=== PATIENT | male | born 1955 | race Caucasian/White ===

== ENCOUNTER 2016-05-30 13:07 | Inpatient (IN) ==
--- NOTE | 2016-05-30 08:18 | Discharge Summary ---
Date of Encounter: 06/02/16 Time of Encounter: 07:47 - Discharge Diagnosis (1) Arthritis of right knee Priority: Primary Status: Acute (2) Hypertension Priority: Secondary Status: Chronic Qualifiers: Hypertension type: unspecified secondary hypertension Qualified Code(s): I15.9 - Secondary hypertension, unspecified; I15 - Secondary hypertension (3) Hyperlipidemia Priority: Secondary Status: Chronic Qualifiers: Hyperlipidemia type: unspecified Qualified Code(s): E78.5 - Hyperlipidemia , unspecified (4) Obstructive sleep apnea Priority: Secondary Status: Chronic (5) Type 2 diabetes mellitus Priority: Secondary Status: Chronic Qualifiers: Diabetes mellitus complication status: without complication Diabetes mellitus director long term care insulin use: unspecified chcf insulin use status Qualified Code(s): E11.9 - Type 2 diabetes mellitus without complications (6) Obesity (BMI 35.0-39.9 without comorbidity) Priority: Secondary Status: Chronic - Discharge Medications Home Medications: Aspirin Enteric Coated [Aspirin EC] 325 mg PO BID #20 tablet.dr 05/30/16 [Rx] GlipiZIDE XL (24 HR) [Glucotrol XL] 10 mg PO 0800 05/30/16 [History] Losartan/Hydrochlorothiazide [Hyzaar 100-25 Tablet] 1 each PO HS 05/30/16 [ History] Metformin HCl [Glucophage] 1,000 mg PO BID 05/30/16 [History] Multivitamin [One Daily Essential] 1 each PO DAILY 05/30/16 [History] OxyCODONE Immed Rel [Roxicodone 5 MG] 5 - 10 mg PO Q6HR PRN #30 tablet 05/30/16 [Rx] Sertraline [Zoloft] 100 mg PO DAILY 05/30/16 [History] Allergies/Adverse Reactions: Allergies Penicillins [PCN] Allergy (Verified 05/30/16 13:50) See Comments Pt not sure of reaction Primary care physician: Joel Joy, - Patient Status Disposition: Transfer Inpatient Rehab Fac Condition: Good Functional capacity at discharge: uses cane/walker Overall status at discharge: patient is progressing back to baseline - Discharge Instructions Follow Up With: Luis Spangler MD [Partnered Physician] - 06/24/16 7:15 am Joel Joy DO [Primary Care Provider] - Joanna Mendoza PAC [Physician Outside Parts Salesman] - 06/12/16 10:30 am - Hospital Course Hospital course: Mr. Hernandez is a 60 year old male The patient had an uneventful postoperative course. They received antibiotics and physical therapy and were discharged in stable condition. There will follow -up in the office in 2 weeks. Aspirin DVT prophylaxis - Time Spent with Patient Total time spent providing and/or coordinating discharge services:
--- NOTE | 2016-05-30 13:17 | History & Physical Report ---
Date of Encounter: 05/30/16 Time of Encounter: 13:17 24 Hour HP Update - Instructions Instructions: If the History and Physical is less than 30 days old and was completed prior to A.M. admission and or procedure and has NOT been updated on calendar day of procedure please complete this update prior to performing procedure. - Update Patient reports changes in Medical Condition: No Changes in examination, assessment, or condition: No Changes in Medication: No Preop tests/diagnostics Reviewed: Yes Surgery Remains Indicated: Yes Consent for Planned Operative Procedure(s) Verified: Yes - Pre-Operative Checklist Preoperative Checklist Indicated: No Prophylactic Antibiotic Ordered: Yes Is VTE Prophylaxis Indicated?: Yes
[2016-05-30] MEDS ORDERED: Clindamycin 900 MG/50 ML 900 MG/50 ML IV.SOLN IVPB ONE (13:28)
[2016-05-30] MEDS ORDERED: Scopolamine Patch 1.5 MG PATCH.TD72 TD ONE (13:33)
[2016-05-30] MEDS ORDERED: *HR* FentaNYL (PF) 100 MCG/2 ML VIAL ONE ×2 (13:35→14:48)
[2016-05-30] MEDS ORDERED: *HR* Midazolam HCl 2 MG/2 ML VIAL ONE (13:35)
[2016-05-30] MEDS ORDERED: Lidocaine -MPF 2% 2 ML VIAL ONE (13:36)
[2016-05-30] MEDS ORDERED: *HR* Succinylcholine 200 MG/10 ML VIAL IVP ONE (13:36)
[2016-05-30] MEDS ORDERED: *HR* Propofol 200 MG/20 ML VIAL IVP ONE ×3 (13:36→14:44)
--- NOTE | 2016-05-30 13:36 | Anesthesia Evaluation PreOp ---
Date of Encounter: 05/30/16 Time of Encounter: 13:35 - Past History Planned Operation: R TKA Cardiac History: HTN, Hyperlipidemia Pulmonary History: Former smoker, BARBARA Dx OFFICE LEAD History: Denies Any Significant HX Other Medical History: Diabetes Type II (oral medications only) Anesthesia History: No Prior Anesthetic Complications Alcohol Use: none Drug use: none Medications and Allergies Aleve 09/05/15 [History] Blood Pressure Medication 09/05/15 [History] Glipizide 09/05/15 [History] Meclizine [Antivert] 25 mg PO TID PRN #30 tablet 09/05/15 [Rx] Metformin 09/05/15 [History] Multivitamin 09/05/15 [History] Zoloft 09/05/15 [History] Diazepam [Valium] 5 mg PO TID #10 tablet 09/07/15 [Rx] Aspirin Enteric Coated [Aspirin EC] 325 mg PO BID #20 tablet. 05/30/16 [Rx] OxyCODONE Immed Rel [Roxicodone 5 MG] 5 - 10 mg PO Q6HR PRN #30 tablet 05/30/16 [Rx] Allergies Penicillins [PCN] Allergy (Verified 09/05/15 16:19) See Comments Pt not sure of reaction - Meds/Allergy Pre-op Review Medications Reviewed: Yes Allergies Reviewed: Yes Beta Blockers on Current Med List: No Anesthesia Results - Labs Laboratory Tests 05/14/16 05/14/16 05/14/16 13:42 13:42 13:42 WBC 8.5 Hgb 13.6 Hct 40.7 Plt Count 249 PT 11.6 INR 1.1 APTT 31.7 Sodium 135 L Potassium 4.1 Chloride 99 Carbon Dioxide 25 BUN 12 Creatinine 0.81 Est GFR ( Amer) > 60 Est GFR (Non-Af Amer) > 60 BUN/Creatinine Ratio 15 Est Mean Plasma Glucose Hemoglobin A1c 05/14/16 13:42 WBC Hgb Hct Plt Count PT INR APTT Sodium Potassium Chloride Carbon Dioxide BUN Creatinine Est GFR ( Amer) Est GFR (Non-Af Amer) BUN/Creatinine Ratio Est Mean Plasma Glucose 166 Hemoglobin A1c 7.4 H - Imaging EKG: report reviewed, image reviewed (SR) Anesthesia Exam Weight: 125 kg NPO (# of Hours): >> 8 hrs - HEENT Pupil (Motor): Pupils equal, EOMI Mallampati: II Teeth: Normal Oral Opening: Greater than 3 - OFFICE LEAD LOC: Oriented OFFICE LEAD Motor: Normal RUE, Normal LUE, Normal RLE, Normal LLE, Normal Face OFFICE LEAD Sensory: Normal: RUE, LUE, RLE, LLE, Face - Cardiac Rhythm: Regular Murmur: None - Pulmonary Breath Sounds: bilateral Clear Respiratory Effort: Symmetrical Anesthesia Assess/Plan ASA Score: 3 Modified Blackwater Scale for Level of Consciousness: Cooperative, oriented, and tranquil Anesthetic Plan: General, Regional Monitoring Plan: Standard Monitors Recovery Plan: PACU
[2016-05-30] MEDS ORDERED: ROPIVACAINE HCL/PF 0.5% 30 ML VIAL ONE (13:59)
[2016-05-30] MEDS ORDERED: Bupivacaine/Clonidine Syringe 1 EACH SYRINGE ONE (14:00)
[2016-05-30] MEDS ORDERED: Ringers Solution, Lactated 1,000 ML IVC SCH ×2 (14:15→16:48)
[2016-05-30] MEDS ORDERED: Ketorolac 30 MG/ML VIAL ONE (14:57)
[2016-05-30] MEDS ORDERED: *HR* HYDROmorphone 2 MG/ML SYRINGE ONE (14:58)
[2016-05-30] MEDS ORDERED: Ondansetron 4 MG/2 ML VIAL ONE (14:59)
[2016-05-30] MEDS ORDERED: EPHEDrine 50 MG/ML VIAL ONE (15:03)
--- NOTE | 2016-05-30 15:51 | Orthopedic Operative Note ---
Date of procedure: 05/30/16 Pre-op diagnosis: Right knee arthritis Post-op diagnosis: same Procedure: Procedure: Right Total knee replacement Estimated blood loss: 300 cc Hardware: Biomet SS K Femur: 75 right, 22 x 120 stem Tibia: 79, 16 x 120 stem Mila insert: 10 Patella: 40 Exam Under anesthesia: Procedural Notes: Grade 4 arthritic changes in all 3 compartments. Operative procedure: The patient was brought to the operating room and placed on the operating room table. After general anesthesia was administered the operative knee was examined. Findings were noted in the exam under anesthesia. The operative extremity was prepped and draped in sterile surgical fashion. The patient received IV antibiotics prior to skin incision. A standard midline incision was made centered over the patella. The incision was made through the skin and subcutaneous tissue. A medial parapatellar tendon approach was performed. Care was taken to preserve tissue along the medial aspect of the patella. And to protect the patella tendon. The deep MCL was released off the medial tibia. The infra patella fat pad was excised. Knee was brought into flexion. Patient noted to have grade 4 arthritic changes all 3 compartments. The entry hole was made for the intramedullary femoral guide. The guide was seated in 6 degrees of valgus. Anterior cut was made followed by the distal cut. The ACL the PCL the medial and the lateral menisci were excised. The tibia was subluxed forward. The entry hole was made for the intramedullary tibial guide. Guide was seated to resect 2 mm off the more abnormal side. The knee was brought into flexion the distal femur was sized to a 75. The femur was reamed up to a 22 x 120. The femoral guide was seated, the anterior cut was made followed by the posterior condylar cut, followed by the chamfer cuts. The finishing guide was seated the box cut was made. The tibia was sized to a 79 The tibia was reamed up to a 16 x 120. Trial reduction revealed full extension no varus valgus instability with the appropriate 10 insert. The patella was everted and cut was made at the level of the insertion of the quadriceps and patella tendon. The patella was sized to a 40 the guide was seated and the lug holes are drilled. Trial reduction revealed excellent patella tracking. All trial components were removed all bony surfaces were irrigated. Components were assembled on the back table. The tibia was cemented first followed by the femur. The 10 Mila was seated and secured. The knee was brought into full extension. The patella was cemented and held in place with the patellar holding clamp. After the cement had hardened, the knee sat for 2 minutes with a Betadine saline solution. The knee was then irrigated out with 2 L of pulse irrigation. The extensor mechanism was closed with #2 FiberWire suture and #2 PDS suture. The subcutaneous tissue was then irrigated and closed deep with #1 PDS suture superficially with 0 PDS suture and skin was closed with skin haritha The patient was then placed in a sterile dressing and a postoperative brace extubated and transferred to recovery room in stable condition. Anesthesia: LAUREN Surgeon: Luis Spangler Health Care Marketing Manager: Stephanie Argueta Condition: stable Disposition: PACU
[2016-05-30 16:19] LABS: Hematocrit 38.8 % (37.5-50.1); Hemoglobin 12.8 g/dL (12.9-16.9)
--- NOTE | 2016-05-30 16:21 | Anesthesia Evaluation Post Op ---
Date of Encounter: 05/30/16 Time of Encounter: 16:20 - Vital Signs Vital Signs: Last Vital Signs Temp 97.0 F L 05/30/16 15:51 Pulse 88 05/30/16 16:11 Resp 18 05/30/16 16:11 BP 123/81 05/30/16 16:11 Pulse Ox 93 05/30/16 16:11 - Lungs Lungs: Clear Ascult./Percussion - Airway Airway: Non-obstructed - Cardiovascular Regular Rate - Mental Status Mental Status: Alert & Oriented, Answers Appropriately - Pain Pain Scale: 3 - Nausea Vomiting Nausea Vomiting: Not Present - Hydration Hydration: Ice chips - Discharge PostOp Status: Transfer Patient to floor
[2016-05-30] MEDS ORDERED: Acetaminophen 325 MG TABLET PO PRN (16:48)
[2016-05-30] MEDS ORDERED: Ondansetron 4 MG/2 ML VIAL IVP PRN (16:48)
[2016-05-30] MEDS ORDERED: *HR* OxyCODONE Immed Rel 5 MG TABLET PO PRN (16:48)
[2016-05-30] MEDS ORDERED: MOM Conc 10 ML UD.LIQ PO PRN (16:48)
[2016-05-30] MEDS ORDERED: Dextrose Gel 15 GM PO PRN ×2 (16:48)
[2016-05-30] MEDS ORDERED: Temazepam 15 MG CAPSULE PO PRN (16:48)
[2016-05-30] MEDS ORDERED: *HR* Dextrose 50 % in Water (Syg) 50 ML SYRINGE IVP PRN (16:48)
[2016-05-30] MEDS ORDERED: Sennosides 8.6 MG TABLET PO PRN (16:48)
[2016-05-30] MEDS ORDERED: Naloxone 0.4 MG/ML INJ IVP PRN (16:48)
[2016-05-30] MEDS ORDERED: D5% in Water 1,000 ML IVC PRN (16:48)
[2016-05-30] MEDS ORDERED: *HR* Enoxaparin 30 MG/0.3 ML SYRINGE SQ SCH (18:00)
[2016-05-30] MEDS: Insulin LISPRO 300 UNITS/3 ML VIAL SQ SCH ×2 (19:05→22:16)
[2016-05-30] MEDS: *HR* Enoxaparin 30 MG/0.3 ML SYRINGE SQ SCH (19:05)
[2016-05-30] MEDS: *HR* Metformin 500 MG TABLET PO SCH (19:05)
[2016-05-30] MEDS: *HR* OxyCODONE Immed Rel 5 MG TABLET PO PRN ×2 (19:48→23:53)
[2016-05-30] MEDS: Losartan/HCTZ 50-12.5 TABLET PO SCH (22:16)
[2016-05-30] MEDS: Clindamycin 900 MG/50 ML 900 MG/50 ML IV.SOLN IVPB SCH (22:16)
[2016-05-31] MEDS: *HR* OxyCODONE Immed Rel 5 MG TABLET PO PRN ×4 (04:09→21:36)
[2016-05-31] MEDS: Clindamycin 900 MG/50 ML 900 MG/50 ML IV.SOLN IVPB SCH (06:12)
[2016-05-31] MEDS: *HR* Enoxaparin 30 MG/0.3 ML SYRINGE SQ SCH ×2 (06:13→19:44)
[2016-05-31 06:43] LABS: Hematocrit 35.3 % (37.5-50.1); Hemoglobin 11.5 g/dL (12.9-16.9)
[2016-05-31 06:56] LABS: BUN/Creatinine Ratio 19 (6-26); Blood Urea Nitrogen 16 mg/dL (8-26); Calcium 8.5 mg/dL (8.6-10.8); Carbon Dioxide 24 mEq/L (19-29); Chloride 96 mEq/L (98-109); Glucose 151 mg/dL (70-99); Osmolality,Calculated 284 (280-300); Sodium 135 mEq/L (136-145); eGFR For African Americans > 60 (> 60); eGFR For Non-African Americans > 60 (> 60)
[2016-05-31] MEDS: Multivit/Ca/Min/Fe/FA 1 TAB TABLET PO SCH (09:08)
[2016-05-31] MEDS: *HR* GlipiZIDE XL (24 HR) 10 MG TABLET PO SCH (09:08)
[2016-05-31] MEDS: *HR* Metformin 500 MG TABLET PO SCH ×2 (09:08→16:43)
[2016-05-31] MEDS: Insulin LISPRO 300 UNITS/3 ML VIAL SQ SCH ×3 (09:09→16:44)
[2016-05-31] MEDS: *HR* HYDROmorphone (PF) 1 MG/ML SYRINGE IVP PRN ×2 (13:29→19:42)
--- NOTE | 2016-05-31 13:32 | Orthopedics Progress Note ---
Date of Encounter: 05/31/16 Time of Encounter: 13:31 Subjective Principal diagnosis: Status post total knee replacement Interval history: Patient complains of knee pain. Afebrile vital signs stable. Incision is clean dry and intact. Fires dorsiflexors and plantar flexors and has brisk capillary refill. Stable. Mobilize as tolerated. Objective Vital signs: Vital Signs Temp Pulse Resp BP Pulse Ox 05/31/16 11:19 97.1 F L 75 18 147/79 92 05/31/16 06:45 99.4 F 75 18 127/75 96 05/31/16 03:52 98.9 F 79 20 128/78 96 05/31/16 00:12 98.7 F 76 16 136/76 97 05/30/16 20:28 16 128/72 05/30/16 19:00 98.5 F 78 15 122/79 96 05/30/16 18:00 98.1 F 82 15 115/76 96 05/30/16 17:25 97.8 F 78 14 104/70 97 05/30/16 16:50 97.5 F L 79 15 127/76 94 05/30/16 16:30 82 18 122/82 93 05/30/16 16:21 97.2 F L 86 18 128/80 94 05/30/16 16:11 88 18 123/81 93 05/30/16 16:01 85 20 125/79 96 05/30/16 15:51 97.0 F L 84 18 131/84 93 05/30/16 14:20 83 18 154/96 94 05/30/16 13:38 97.9 F 88 16 150/94 95 Intake and Output 05/30/16 05/31/16 05/31/16 23:59 07:59 15:59 Intake Total 50 / 50 640 / 640 480 / 480 Output Total 0 / 0 Balance 50 / 50 640 / 640 480 / 480 Intake: IV Fluids 50 / 50 Cleocin 900 MG/50 ML 900 50 / 50 mg In 50 ml @ 50 mls/hr IVPB Q8H [facility] Rx#: [id number] Oral 640 / 640 480 / 480 Output: Urine 0 / 0 Other: # Voids 1 # Bowel Movements 0 0 Weight 125.6 kg Blood Glucose* 171 180 228 Patient Weight 05/31/16 23:59 Weight 125.6 kg - Labs CBC & BMP: 04/22/17 05:51 05/31/16 05:51 Labs: Abnormal lab results Hgb 11.5 g/dL (12.9-16.9) L 05/31/16 05:51 Hct 35.3 % (37.5-50.1) L 05/31/16 05:51 Sodium 135 mEq/L (136-145) L 05/31/16 05:51 Chloride 96 mEq/L (98-109) L 05/31/16 05:51 Glucose 151 mg/dL (70-99) H 05/31/16 05:51 POC Glucose 228 (58-89) H 05/31/16 11:22 Calcium 8.5 mg/dL (8.6-10.8) L 05/31/16 05:51 - VTE Documentation of Mechanical Device: Venous foot pump, device Consult Discharge Plan - Plan Referrals: Luis Spangler MD [Partnered Physician] - 06/24/16 7:15 am Joel Joy, DO [Primary Care Provider] - Joanna Mendoza, PAC [Physician Data Support Analyst] - 06/12/16 10:30 am
[2016-05-31] MEDS: Losartan/HCTZ 50-12.5 TABLET PO SCH (21:36)
[2016-06-01] MEDS: *HR* OxyCODONE Immed Rel 5 MG TABLET PO PRN ×5 (01:25→21:51)
[2016-06-01] MEDS: *HR* Enoxaparin 30 MG/0.3 ML SYRINGE SQ SCH ×2 (05:26→16:51)
[2016-06-01] MEDS: *HR* HYDROmorphone (PF) 1 MG/ML SYRINGE IVP PRN ×4 (06:54→22:58)
[2016-06-01 07:39] LABS: Hematocrit 35.5 % (37.5-50.1); Hemoglobin 11.6 g/dL (12.9-16.9)
[2016-06-01 08:13] LABS: BUN/Creatinine Ratio 14 (6-26); Blood Urea Nitrogen 11 mg/dL (8-26); Calcium 9.4 mg/dL (8.6-10.8); Carbon Dioxide 26 mEq/L (19-29); Chloride 96 mEq/L (98-109); Glucose 197 mg/dL (70-99); Osmolality,Calculated 285 (280-300); Potassium 3.5 mEq/L (3.5-4.5); Sodium 135 mEq/L (136-145); eGFR For African Americans > 60 (> 60); eGFR For Non-African Americans > 60 (> 60)
[2016-06-01] MEDS: Insulin LISPRO 300 UNITS/3 ML VIAL SQ SCH ×5 (09:05→21:56)
[2016-06-01] MEDS: *HR* GlipiZIDE XL (24 HR) 10 MG TABLET PO SCH (09:06)
[2016-06-01] MEDS: *HR* Metformin 500 MG TABLET PO SCH ×2 (09:06→16:50)
[2016-06-01] MEDS: Multivit/Ca/Min/Fe/FA 1 TAB TABLET PO SCH (09:06)
--- NOTE | 2016-06-01 18:31 | Orthopedics Progress Note ---
Date of Encounter: 06/01/16 Time of Encounter: 18:30 Subjective Principal diagnosis: Status post total knee replacement Interval history: Patient complains of knee pain. Not mobilizing well currently. Afebrile vital signs stable. Incision is clean dry and intact. Fires dorsiflexors and plantar flexors and has brisk capillary refill. Stable. Mobilize as tolerated. D/C planning per Dr Spangler. Objective Vital signs: Vital Signs Temp Pulse Resp BP Pulse Ox 06/01/16 15:12 99.2 F 81 18 152/84 94 06/01/16 10:15 98.3 F 80 18 144/83 93 06/01/16 06:50 98.3 F 76 18 153/67 93 06/01/16 04:37 98.3 F 90 17 164/75 95 06/01/16 01:13 99.2 F 76 18 164/79 94 05/31/16 19:47 99.9 F H 89 18 154/85 92 Intake and Output 06/01/16 06/01/16 06/01/16 07:59 15:59 23:59 Intake Total 360 / 360 360 / 360 480 / 480 Output Total 1150 / 1150 0 / 0 Balance -790 / -790 360 / 360 480 / 480 Intake: Oral 360 / 360 360 / 360 480 / 480 Output: Urine 1150 / 1150 0 / 0 Other: Meal Lunch Breakfast Dinner Percent of Meal Consumed 100% 100% 100% # Bowel Movements 0 Weight 125.6 kg Blood Glucose* 199 218 211 Patient Weight 06/01/16 23:59 Weight 125.6 kg - Labs CBC & BMP: 06/01/16 06:52 06/01/16 06:52 Labs: Abnormal lab results Hgb 11.6 g/dL (12.9-16.9) L 06/01/16 06:52 Hct 35.5 % (37.5-50.1) L 06/01/16 06:52 Sodium 135 mEq/L (136-145) L 06/01/16 06:52 Chloride 96 mEq/L (98-109) L 06/01/16 06:52 Glucose 197 mg/dL (70-99) H 06/01/16 06:52 POC Glucose 211 (58-89) H 06/01/16 16:13 - VTE Documentation of Mechanical Device: Venous foot pump, device Consult Discharge Plan - Plan Referrals: Luis Spangler MD [Partnered Physician] - 06/24/16 7:15 am Joel Joy DO [Primary Care Provider] - Joanna Mendoza PAC [Physician Before School] - 06/12/16 10:30 am
[2016-06-01] MEDS: Losartan/HCTZ 50-12.5 TABLET PO SCH (21:51)
[2016-06-02] MEDS: *HR* OxyCODONE Immed Rel 5 MG TABLET PO PRN ×2 (05:43→11:03)
[2016-06-02] MEDS: *HR* Enoxaparin 30 MG/0.3 ML SYRINGE SQ SCH (05:43)
--- NOTE | 2016-06-02 07:48 | Orthopedics Progress Note ---
Date of Encounter: 06/02/16 Time of Encounter: 07:48 - Assessment and Plan (1) Arthritis of right knee Current Visit: Yes Status: Acute (2) Hypertension Current Visit: Yes Status: Chronic Qualifiers: Hypertension type: unspecified secondary hypertension Qualified Code(s): I15.9 - Secondary hypertension, unspecified; I15 - Secondary hypertension (3) Hyperlipidemia Current Visit: Yes Status: Chronic Qualifiers: Hyperlipidemia type: unspecified Qualified Code(s): E78.5 - Hyperlipidemia , unspecified (4) Obstructive sleep apnea Current Visit: Yes Status: Chronic (5) Type 2 diabetes mellitus Current Visit: Yes Status: Chronic Qualifiers: Diabetes mellitus complication status: without complication Diabetes mellitus regional intermodal truck driver insulin use: unspecified regional intermodal truck driver insulin use status Qualified Code(s): E11.9 - Type 2 diabetes mellitus without complications (6) Obesity (BMI 35.0-39.9 without comorbidity) Current Visit: Yes Status: Chronic Subjective Principal diagnosis: Status post total knee replacement Interval history: Patient was seen this morning doing well without complaints. Afebrile vital signs stable. Operative extremity: Neurovascularly intact Dressing clean dry and intact Calves nontender Assessment and plan: Continue with postoperative care Hematocrit 35 discharged today Objective Vital signs: Vital Signs Temp Pulse Resp BP Pulse Ox 06/02/16 05:05 98.3 F 72 16 138/54 95 06/02/16 01:17 98.2 F 82 16 148/78 95 06/01/16 20:00 98.7 F 93 16 173/75 95 06/01/16 15:12 99.2 F 81 18 152/84 94 06/01/16 10:15 98.3 F 80 18 144/83 93 Intake and Output 06/01/16 06/01/16 06/02/16 15:59 23:59 07:59 Intake Total 360 / 360 720 / 720 360 / 360 Output Total 0 / 0 500 / 500 360 / 360 Balance 360 / 360 220 / 220 0 / 0 Intake: Oral 360 / 360 720 / 720 360 / 360 Output: Urine 0 / 0 500 / 500 360 / 360 Other: Meal Breakfast Dinner Percent of Meal Consumed 100% 100% # Bowel Movements 0 Weight 125.6 kg Blood Glucose* 218 281 Patient Weight 06/02/16 23:59 Weight 125.6 kg - Labs CBC & BMP: 06/01/16 06:52 06/01/16 06:52 Labs: Abnormal lab results Hgb 11.6 g/dL (12.9-16.9) L 06/01/16 06:52 Hct 35.5 % (37.5-50.1) L 06/01/16 06:52 Sodium 135 mEq/L (136-145) L 06/01/16 06:52 Chloride 96 mEq/L (98-109) L 06/01/16 06:52 Glucose 197 mg/dL (70-99) H 06/01/16 06:52 POC Glucose 281 (58-89) H 06/01/16 20:49 - VTE Documentation of Mechanical Device: Venous foot pump, device Consult Discharge Plan - Plan Referrals: Luis Spangler MD [Partnered Physician] - 06/24/16 7:15 am Joel Joy, DO [Primary Care Provider] - Joanna Mendoza, PAC [Physician Practicing Dermatologist] - 06/12/16 10:30 am
[2016-06-02] MEDS: Insulin LISPRO 300 UNITS/3 ML VIAL SQ SCH ×2 (08:20→11:58)
[2016-06-02] MEDS: Multivit/Ca/Min/Fe/FA 1 TAB TABLET PO SCH (08:23)
[2016-06-02] MEDS: *HR* GlipiZIDE XL (24 HR) 10 MG TABLET PO SCH (08:24)
[2016-06-02] MEDS: *HR* Metformin 500 MG TABLET PO SCH (08:24)
[2016-06-02 11:56] VITALS: BP 159/77
== END 2016-06-02 13:43 | disposition home or self-care (01) | DRG 470 ==
LOC: SAMDAY 13:07 → 3ANU 16:39
PROVIDERS: ADMIT Orthopaedic Surgery; ATTEND Orthopaedic Surgery